=== PATIENT | male | born 1980 | race African-American/Black ===

== ENCOUNTER 2024-05-10 23:55 | Emergency (ER) | payer SELFPAY ==
[2024-05-11] MEDS ORDERED: Acetaminophen 500 MG TAB ONE (03:18)
[2024-05-11] MEDS ORDERED: Ketorolac Tromethamine 30 MG (1 mL) VIAL ONE (03:18)
[2024-05-11] MEDS ORDERED: Lidocaine Viscous Sol 2% 15 ml UD Cup SSP SCH (03:45)
[2024-05-11] MEDS ORDERED: Mag-Al Plus 1200/1200/120 MG (30 mL) UDCUP SSP SCH (04:00)
== END 2024-05-11 04:06 | disposition home or self-care (01) ==
LOC: ERS 23:55
DX: K08.89 Other specified disorders of teeth and supporting structures (principal); K02.9 Dental caries, unspecified; F17.210 Nicotine dependence, cigarettes, uncomplicated; F17.290 Nicotine dependence, other tobacco product, uncomplicated
CPT/HCPCS: 96372; 99282; J1885